=== PATIENT | female | born 1985 | race Two or more races ===

== ENCOUNTER 2019-09-05 09:11 | Outpatient (CLI) | payer OTHER | END 2019-09-05 12:08 | disposition home or self-care (01) | LOC: NUCLEAR 09:11 | DX: C53.0 Malignant neoplasm of endocervix (principal) | CPT/HCPCS: 78816; A9552 ==

== ENCOUNTER 2021-10-12 15:01 | Outpatient (CLI) | payer OTHER | END 2021-10-12 15:35 | disposition home or self-care (01) | LOC: NST 15:01 | PROVIDERS: ATTEND Obstetrics & Gynecology Maternal & Fetal Medicine | DX: Z34.83 Encounter for supervision of other normal pregnancy, third trimester (principal) ==

== ENCOUNTER 2021-10-19 15:16 | Outpatient (CLI) | payer OTHER ==
[2021-10-20] MEDS ORDERED: VALTREX1000 MG PO (08:36)
[2021-10-20] MEDS ORDERED: PRENATAL VITAM1 EAC4 PO (08:36)
[2021-10-20] MEDS ORDERED: GENTAMICIN SULF15 G2 (09:57)
[2021-10-20] MEDS ORDERED: MONTELUKAST SOD10 MG (09:57)
== END 2021-10-19 17:16 | disposition home or self-care (01) ==
LOC: NST 15:16
PROVIDERS: ATTEND Obstetrics & Gynecology
DX: Z34.83 Encounter for supervision of other normal pregnancy, third trimester (principal)

== ENCOUNTER 2021-10-20 06:05 | Inpatient (IN) | payer OTHER ==
[~2021-10-20] VITALS: Ht 162.6 cm; Wt 76.2 kg
[2021-10-20] MEDS ORDERED: VALTREX1000 MG PO (08:36)
[2021-10-20] MEDS ORDERED: PRENATAL VITAM1 EAC4 PO (08:36)
[2021-10-20] MEDS ORDERED: MONTELUKAST SOD10 MG (09:57)
[2021-10-20] MEDS ORDERED: GENTAMICIN SULF15 G2 (09:57)
== END 2021-10-22 13:25 | disposition home or self-care (01) | DRG 807 ==
LOC: LDR 06:05 → OB/GYN 13:34
PROVIDERS: ADMIT Obstetrics & Gynecology; ATTEND Obstetrics & Gynecology
PROC: 10E0XZZ Delivery of Products of Conception, External Approach (ICD-10-PCS; principal; 2021-10-20)
PROC: 0W8NXZZ Division of Female Perineum, External Approach (ICD-10-PCS; 2021-10-20)
PROC: 4A1HXCZ Monitoring of Products of Conception, Cardiac Rate, External Approach (ICD-10-PCS; 2021-10-20)
DX: O80 Encounter for full-term uncomplicated delivery (principal); Z37.0 Single live birth; Z3A.39 39 weeks gestation of pregnancy; Z20.822 Contact with and (suspected) exposure to COVID-19

== ENCOUNTER → 2022-11-18 | Emergency (ER) | payer OTHER ==
[~2022-11-18] VITALS: Ht 162.6 cm; Wt 71.2 kg
[~2022-11-18] MED LIST: GENTAMICIN SULF15 G2; MONTELUKAST SOD10 MG; PRENATAL VITAM1 EAC4 PO; SINGULAIR10 MG PO; VALTREX1000 MG PO
== END | disposition left against medical advice (07) ==
LOC: ER 13:02
DX: Z53.21 Procedure and treatment not carried out due to patient leaving prior to being seen by health care provider (principal)